=== PATIENT | male | born 1985 | race Caucasian/White ===

== ENCOUNTER 2016-12-22 13:10 | Emergency (ER) | payer OTHER ==
[~2016-12-22 13:10] MED LIST: BACTRIM DS TAB1 EACH PO; FLAGYL500 MG PO; NICODERM 21MG PA1 EA TD; OXYCODONE-ACET1 EAC1 PO
== END 2016-12-22 13:34 | disposition home or self-care (01) ==
LOC: ER 13:10
DX: F41.9 Anxiety disorder, unspecified (principal); F32.9 Major depressive disorder, single episode, unspecified; J45.909 Unspecified asthma, uncomplicated; Z86.19 Personal history of other infectious and parasitic diseases; F17.210 Nicotine dependence, cigarettes, uncomplicated; Z79.899 Other long term (current) drug therapy; Z88.1 Allergy status to other antibiotic agents; Z91.013 Allergy to seafood
CPT/HCPCS: 99282